=== PATIENT | male | born 1960 | race Hispanic/Latino ===

== ENCOUNTER 2017-05-19 18:49 | Emergency (ER) | payer OTHER ==
[~2017-05-19 18:49] MED LIST: ADRENALIN ONE; CALCIUM CHLORIDE IV ONE; SODIUM BICARBONATE IV ONE
--- NOTE | 2017-05-19 19:18 | Emergency Department Report ---
ED CPR HPI - General Chief Complaint: Cardiac Arrest/CPR Stated Complaint: CARDIAC ARREST Time Seen by Provider: 05/19/17 19:18 Source: EMS - History of Present Illness Initial Comments: Patient is a 57-year-old male with unknown past medical history was presented in cardiac arrest. EMS states that they have been with this patient for approximate 45 minutes providing ACLS. Patient was found in asystole at home. Patient had not been seen for approximately 20 minutes before 911 had been called. Patient was intubated as received 4 rounds of epinephrine with no change. Patient in asystole since EMS arrival has continued in asystole here in emergency department. Is unknown whether the patient had any chest pain shortness of breath complaints in the past 24 hours MD Complaint: found unresponsive Place: home ED Review of Systems ROS: Stated complaint: CARDIAC ARREST Other details as noted in HPI Comment: Unobtainable due to pts medical conditions ED Physical Exam - General General appearance: obtunded - Head Head exam: Present: atraumatic - Eye Eye exam: Present: other (pupils are fixed and dilated) - ENT ENT exam: Present: other (copious amounts of stomach contents in the mouth) - Neck Neck exam: Present: normal inspection - Respiratory Respiratory exam: Present: other (no spontaneous respirations) - Cardiovascular Cardiovascular Exam: Present: other (no spontaneous heart tones) - GI/Abdominal GI/Abdominal exam: Present: soft, distended - Skin Skin exam: Present: other (mottled skin) ED Medical Decision Making - Medical Decision Making The patient is a 57-year-old male who is presenting to cardiac arrest. On my assessment there were air sounds when listening to the patient being bagged near the stomach. There was also abdominal rising with bagging. I do not believe that the patient's ET tube is in the proper place. Patient's ET tube was replaced with 8O endotracheal tube. There is good condensation in color change on the CO2 monitor. Patient was bagged for approximately 2 minutes afterwards with no change. Patient is continuing to be in asystole. Patient was pronounced in the emergency Department [place] notified Critical care attestation.: If time is entered above; I have spent that time in minutes in the direct care of this critically ill patient, excluding procedure time. ED Disposition Clinical Impression: Cardiopulmonary arrest Disposition: DC-20 Is pt being admited?: No Does the pt Need Aspirin: No Condition: Stable Referrals: ISRAEL HERNANDEZ MD [Primary Care Provider] - 3-5 Days
== END 2017-05-19 23:30 ==
LOC: ED 18:49
DX: I46.9 Cardiac arrest, cause unspecified (principal)
CPT/HCPCS: 92950; J0171